=== PATIENT | male | born 1960 | race African-American/Black ===

== ENCOUNTER 2020-07-26 23:57 | Observation (INO) ==
[2020-07-27] MEDS ORDERED: MORPHINE 4 MG/1 ML VIAL IV STA (00:16)
[2020-07-27] MEDS ORDERED: ONDANSETRON 4 MG/2 ML VIAL IV STA (00:16)
[2020-07-27] MEDS ORDERED: SODIUM CHLORIDE 0.9% 1,000 ML IV STA (00:16)
[2020-07-27] MEDS ORDERED: KETOROLAC 30 MG/1 ML VIAL IV STA (00:16)
[2020-07-27 00:49] LABS: Alanine Aminotransferase 22 U/L (16-61); Albumin 4.2 G/DL (3.4-5.0); Alkaline Phosphatase 96 U/L (45-117); Aspartate Amino Transferase 19 U/L (0-37); Bilirubin,Total < 0.39 MG/DL (0.2-1.0); Blood Urea Nitrogen 15 MG/DL (7-18); Calcium 9.1 MG/DL (8.5-10.1); Estimated Glom Filtration Rate 83 ML/MIN; Glucose 121 MG/DL (74-106); Potassium 4.1 MMOL/L (3.5-5.1); Total Protein 8.2 G/DL (6.4-8.2)
[2020-07-27 00:52] LABS: Basophils % 0.2 % (0.0-0.8); Eosinophils # 0.1 10*3/uL (0.0-0.87); Hematocrit 42.7 VOL% (42.0-52.0); Hemoglobin 13.9 GM/DL (14.0-18.0); Immature Granulocytes % 0.3 %; Immature Granulocytes Absolute 0.04 #; Lymphocytes # 1.5 10*3/uL (1.4-4.0); Lymphocytes % 11.5 % (21.2-54.2); Mean Corpuscular HGB Conc 32.6 GM/DL (32-36); Mean Corpuscular Volume 91.8 FL (87-102); Mean Platelet Volume 9.6 FL (9.6-12.0); Monocytes % 6.4 % (1.7-12.7); Neutrophils % 80.6 % (38.7-73.9); Platelet Count 279 T/CUMM (130-400); Red Blood Count 4.65 MC/CUMM (3.8-5.5); White Blood Count 12.8 T/CUMM (4-12)
[2020-07-27 00:53] LABS: Osmolality,Calculated 274.8 MOS/KG (273-304); Sodium 137 MMOL/L (136-145)
[2020-07-27 00:56] LABS: Carbon Dioxide 31 MMOL/L (21-32)
[2020-07-27 02:10] LABS: Amorphous Crystals,Urine Occasional /HPF (Few); Bilirubin,Urine Negative (Negative); Blood, Urine Small mg/dL (Negative); Glucose,Urine (UA) Negative (Negative); Ketones,Urine Negative (Negative); Mucus,Urine Occasional /LPF (Occasional); Nitrite,Urine Negative (Negative); Protein,Urine Negative; RBC,Urine 57 /HPF (0-4); Urine Appearance CLEAR (Clear); Urine Color Yellow (Yellow); Urine Specific Gravity 1.012 (1.001-1.035); Urine Urobilinogen < 2.0 EU/DL (0.2-1.0)
[2020-07-27] MEDS ORDERED: GLUCAGON 1 MG VIAL IM PRN (02:52)
[2020-07-27] MEDS ORDERED: ACETAMINOPHEN 325 MG TABLET PO PRN (02:52)
[2020-07-27] MEDS ORDERED: DEXTROSE 50% 25 GM/50 ML VIAL IV PRN (02:52)
[2020-07-27] MEDS ORDERED: ONDANSETRON 4 MG/2 ML VIAL IV PRN (02:57)
[2020-07-27] MEDS ORDERED: hydrALAZINE 20 MG/1 ML VIAL IV PRN (02:57)
[2020-07-27] MEDS ORDERED: MORPHINE 4 MG/1 ML VIAL IV PRN (02:57)
[2020-07-27] MEDS ORDERED: DOCUSATE SODIUM 100 MG CAPSULE PO PRN (02:57)
[2020-07-27 04:07] LABS: Hypochromasia Slight; Microcytosis 1+
[2020-07-27 04:08] LABS: Ovalocytes Slight; Platelet Estimate Normal
[2020-07-27] MEDS: SODIUM CHLORIDE 0.9% 1,000 ML IV SCH ×3 (04:49→21:51)
[2020-07-27 05:51] LABS: Basophils % 0.2 % (0.0-0.8); Eosinophils % 0.1 % (0.00-10.9); Hemoglobin 13.3 GM/DL (14.0-18.0); Immature Granulocytes % 0.3 %; Immature Granulocytes Absolute 0.03 #; Lymphocytes # 1.1 10*3/uL (1.4-4.0); Mean Corpuscular HGB Conc 32.4 GM/DL (32-36); Mean Corpuscular Volume 91.7 FL (87-102); Mean Platelet Volume 9.8 FL (9.6-12.0); Monocytes % 4.8 % (1.7-12.7); Neutrophils % 84.6 % (38.7-73.9); Platelet Count 269 T/CUMM (130-400); Red Blood Count 4.47 MC/CUMM (3.8-5.5); Red Cell Distribution Width 14.1 % (9.3-17.3); White Blood Count 10.7 T/CUMM (4-12)
[2020-07-27 06:07] LABS: Calcium 8.9 MG/DL (8.5-10.1); Osmolality,Calculated 283.1 MOS/KG (273-304); Potassium 3.8 MMOL/L (3.5-5.1)
[2020-07-27] MEDS ORDERED: KETOROLAC 30 MG/1 ML VIAL IV PRN (08:00)
[2020-07-27] MEDS: TAMSULOSIN 0.4 MG CAPSULE PO SCH (08:41)
[2020-07-27] MEDS ORDERED: cefTRIAXone 1,000 MG in SODIUM CHLORIDE 0.9% 100 ML IV ONE (13:58)
[2020-07-28] MEDS ORDERED: cefTRIAXone 1,000 MG in SODIUM CHLORIDE 0.9% 100 ML IV ONE (06:00)
[2020-07-28] MEDS: SODIUM CHLORIDE 0.9% 1,000 ML IV SCH ×2 (07:15→15:05)
[2020-07-28] MEDS: TAMSULOSIN 0.4 MG CAPSULE PO SCH (09:07)
[2020-07-28] MEDS ORDERED: propofoL 200 MG/20 ML VIAL IV ONE (10:52)
[2020-07-28] MEDS ORDERED: LIDOCAINE 2% 5 ML VIAL ONE (10:52)
[2020-07-28] MEDS ORDERED: fentaNYL 100 MCG/2 ML VIAL ONE (10:53)
[2020-07-28] MEDS ORDERED: MIDAZOLAM 2 MG/2 ML VIAL ONE (10:53)
[2020-07-28] MEDS ORDERED: DEXAMETHASONE 4 MG/1 ML VIAL ONE (11:40)
[2020-07-28] MEDS ORDERED: ONDANSETRON 4 MG/2 ML VIAL ONE (11:40)
[2020-07-28] MEDS ORDERED: GLYCOPYRROLATE 0.4 MG/2 ML VIAL ONE (11:40)
[2020-07-28] MEDS ORDERED: SEVOFLURANE 1 UNIT/15 MINUTE INH ONE (11:40)
[2020-07-28] MEDS ORDERED: KETOROLAC 30 MG/1 ML VIAL ONE (12:01)
[2020-07-28 15:52] VITALS: BP 134/92
== END 2020-07-28 18:55 | disposition home or self-care (01) ==
LOC: N.EDINP 23:57 → N.ED 23:57 → N.3E 07-27 02:55
PROVIDERS: ADMIT Internal Medicine; ATTEND Internal Medicine